=== PATIENT | female | born 1985 | race Caucasian/White ===

== ENCOUNTER 2017-04-23 07:30 | Inpatient (IN) | payer MEDICAID ==
[~2017-04-23] VITALS: Ht 149.9 cm; Wt 88.2 kg
[~2017-04-23 07:30] MED LIST: PREN1TAB49 PO
[2017-04-24] MEDS ORDERED: EPHEDrine SULFATE 50 MG/5 ML SYG ONE (07:00)
[2017-04-24] MEDS ORDERED: MISOPROSTOL 200 MCG TAB PR PRN ×2 (11:00→17:30)
[2017-04-24] MEDS ORDERED: METHYLERGONOVINE 0.2 MG INJ IM PRN ×2 (11:00→17:30)
[2017-04-24] MEDS ORDERED: CEFAZOLIN 2 GM/50 ML (PMX) 50 ML IV SCH (11:00)
[2017-04-24] MEDS ORDERED: CARBOPROST 250 MCG INJ IM PRN ×2 (11:00→17:30)
[2017-04-24] MEDS ORDERED: OXYTOCIN 30 UNITS/LR 500 ML IV PRN ×2 (11:00→17:30)
[2017-04-24 11:10] LABS: ADD SCAN DIFF NO
[2017-04-24 11:18] LABS: BASOPHILS % 0.1 % (0.0-2.0); EOSINOPHILS % 0.5 % (0.0-7.0); HEMATOCRIT 31.5 % (37.0-47.0); HEMOGLOBIN 10.3 g/dl (12.0-16.0); LYMPHOCYTES # 1.6 10^3/ul (0.8-2.9); LYMPHOCYTES % 21.6 % (15.0-51.0); MEAN CORPUSCULAR HEMOGLOBIN 29.4 pg (29.0-33.0); MEAN CORPUSCULAR HGB CONC 32.7 g/dl (32.0-37.0); MEAN PLATELET VOLUME 10.9 fl (7.4-10.4); MONOCYTE # 0.6 10^3/ul (0.3-0.9); MONOCYTES % 8.4 % (0.0-11.0); NEUTROPHIL # 5.1 10^3/ul (1.6-7.5); PLATELET COUNT 171 10^3/UL (140-415); RED CELL DISTRIBUTION WIDTH 17.2 % (11.5-14.5); WHITE BLOOD COUNT 7.4 10^3/ul (4.8-10.8)
[2017-04-24 12:06] LABS: INR 1.03; PROTIME 13.5 Sec (12.2-14.2); PT RATIO 1.1
[2017-04-24 12:11] LABS: PARTIAL THROMBOPLASTIN TIME 30.3 Sec (25.0-35.0)
[2017-04-24] MEDS ORDERED: morphine SULFATE/PF (10 MG/10 ML) INJ ONE (12:39)
[2017-04-24] MEDS ORDERED: FENTAnyl 50 MCG/ML VIAL ONE (12:39)
[2017-04-24] MEDS ORDERED: PHENYLephrine (100 MCG/ML) 5ML SYG ONE (12:46)
[2017-04-24] MEDS ORDERED: ONDANSETRON 4 MG INJ ONE (12:59)
[2017-04-24] MEDS ORDERED: DEXAMETHASONE 4 MG/ML 1 ML INJ ONE (12:59)
[2017-04-24] MEDS ORDERED: OXYTOCIN 30 UNITS/LR 500 ML IV ONE (13:59)
--- NOTE | 2017-04-24 14:29 | HP ---
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 Allergy denies allergy to any known medication Social habit denies a smoking or drinking or using illicit drugs Review of system within normal Physical examination 5 feet 194 pounds temperature 97.9 pulse of 72 respiration 18 pressure 117/75 Head ears nose and throat negative Lungs clear to P&A Heart normal sinus rhythm no murmur Abdomen fundal height 37 cm from symphysis pubic with a score of 2 previous section heart rate category 1 Pelvic examination deferred Extremities no edema no varicosities Impression intrauterine at 39 weeks gestation history of 2 previous section is being prepared to undergo repeat for the third time patient is aware of the complication of the surgery including bowel bladder injury infection hemorrhage and hematoma specifically with a history of 2 previous section on possibility intra-abdominal scar and adhesions and she is willing to go ahead with this procedure Past Family/Social History * Past Medical, Surgical, Family and Obstetric Histories reviewed from chart. OB Admission Exam Physical Exam HEENT: WNL Heart: Rhythm Normal Lungs: Clear, Equal Abdomen: WNL Extremities: Normal Reflexes: Normal Cervical Dilatation: None Effacement: 0% Heart Rate: 130's Accelerations: Accelerations Present Intensity: Mild Last 72 hours Lab Results CBC & BMP 04/24/17 10:45 OB Assessment/Plan Reason for admission: other (Repeat for the third time) DORIE GARG MD Apr 24, 2017 14:28
--- NOTE | 2017-04-24 15:06 | OPR ---
DATE OF OPERATION: 04/24/2017 PREOPERATIVE DIAGNOSES: 1. Intrauterine at 39 weeks and 1 day. 2. History of 2 previous sections. POSTOPERATIVE DIAGNOSES: 1. Intrauterine at 39 weeks and 1 day. 2. History of 2 previous sections. OPERATION PERFORMED: Repeat transverse low cervical section. SURGEON: Dorie Rojas MD TESTING COORDINATOR: Kalina Guajardo MD ANESTHESIA: Spinal. ANESTHESIOLOGIST: Dr. Riley FINDINGS: Live baby girl with the 9 and 9. Baby weighed 3270 grams. DETAILS OF THE PROCEDURE: Under satisfactory spinal anesthesia, the patient was prepped and draped and placed in supine position, tilted to the left. Pfannenstiel incision was made. The skin scar o f 2 previous sections was removed. Incision carried through the subcutaneous tissue. Blee ders brought under control with electrocautery. Fascia incised to the length of the incision. Rect us muscle divided in midline. Peritoneum exposed. Upon entry into the abdomen, it was noted a trem endous amount of adhesions between the anterior uterine wall, round ligament and anterior abdominal wall which had twisted the uterus laterally. After those adhesions were taken down by the sharp and blunt dissection, finally, the lower segment of the uterus was freed from the adhesions. Bladder f lap was developed. Transverse incision was made in the lower segment of the uterus. Amniotic sac r uptured. Clear amniotic fluid noted. Live baby girl was delivered from occiput posterior face up. Nasal oropharyngeal suction was performed. Baby handed to the team for immediate attentio n. Patient received 20 units of Pitocin. Placenta delivered manually intact. Uterine cavity clean ed with wet sponge and drainage established. Uterus closed in 2 layers using Monocryl #1 in continu ous fashion. Peritoneal cavity irrigated with warm saline. Sponge, needle and instrument reported to be correct. Abdominal peritoneum closed with 2-0 chromic catgut continuously. Rectus muscle ramiro roximated with several interrupted 2-0 chromic catgut. Fascia closed with #1 PDS in a continuous fa shion. Subcutaneous tissue approximated with 2-0 chromic catgut. Skin closed with edison. Estima afshin blood loss 600 mL. Urine bag contained 200 mL of clear urine. Patient tolerated procedure well , transferred to recovery room in good condition. Dictated By: DORIE ROJAS MD HF/NTS Conf#: [id number] DID#: [id number] CC: KALINA GUAJARDO MD;*End*
[2017-04-24] MEDS: OXYTOCIN 30 UNITS/LR 500 ML IV SCH ×4 (15:44→22:47)
[2017-04-24 17:00] VITALS: BP 102/56; RESP 18
[2017-04-24] MEDS ORDERED: ACETAMINOPHEN/CODEINE #3 TAB PO PRN ×2 (17:30)
[2017-04-24] MEDS ORDERED: CEFAZOLIN 1 GM/50 ML (PMX) 50 ML IVPB SCH (17:30)
[2017-04-24] MEDS ORDERED: OXYCODONE/ACETAMINOPHEN (5/325) TAB PO PRN ×2 (17:30)
[2017-04-24] MEDS: IBUPROFEN 600 MG TAB PO SCH (18:00)
[2017-04-24] MEDS ORDERED: HYDROmorphONE 1 MG/ML SYG IV PRN ×3 (18:30→19:00)
[2017-04-24] MEDS ORDERED: ONDANSETRON 4 MG INJ IV PRN ×2 (18:30→19:00)
[2017-04-24] MEDS ORDERED: KETOROLAC 30 MG INJ IV PRN ×2 (18:30→19:00)
[2017-04-24] MEDS ORDERED: DIPHENHYDRAMINE 50 MG INJ IV PRN (19:00)
[2017-04-24] MEDS ORDERED: NALOXONE (0.4 MG/ML) INJ IV PRN (19:00)
[2017-04-24] MEDS ORDERED: ZOLPIDEM 5 MG TAB PO PRN (19:00)
[2017-04-24 20:00] VITALS: BP 109/66; RESP 18
[2017-04-24] MEDS: SENNA/DOCUSATE NA (8.6MG/50MG) TAB PO SCH (21:00)
[2017-04-25] VITALS: BP 95/50; RESP 18
[2017-04-25] MEDS: OXYTOCIN 30 UNITS/LR 500 ML IV SCH ×4 (01:14→13:14)
[2017-04-25 04:00] VITALS: BP 98/54; RESP 18
[2017-04-25] MEDS: IBUPROFEN 600 MG TAB PO SCH ×4 (06:00→18:07)
[2017-04-25 08:00] VITALS: BP 100/64; PULSE 62; RESP 18
[2017-04-25 08:13] LABS: ADD SCAN DIFF NO
[2017-04-25 08:17] LABS: BASOPHILS % 0.1 % (0.0-2.0); EOSINOPHILS % 0.1 % (0.0-7.0); HEMATOCRIT 29.4 % (37.0-47.0); HEMOGLOBIN 9.6 g/dl (12.0-16.0); LYMPHOCYTES # 1.7 10^3/ul (0.8-2.9); LYMPHOCYTES % 14.8 % (15.0-51.0); MEAN CORPUSCULAR HEMOGLOBIN 29.9 pg (29.0-33.0); MEAN CORPUSCULAR HGB CONC 32.7 g/dl (32.0-37.0); MEAN CORPUSCULAR VOLUME 91.6 fl (82.0-101.0); MEAN PLATELET VOLUME 11.1 fl (7.4-10.4); MONOCYTE # 1.2 10^3/ul (0.3-0.9); NEUTROPHIL # 8.7 10^3/ul (1.6-7.5); NEUTROPHILS % 74.6 % (39.0-77.0); PLATELET COUNT 174 10^3/UL (140-415); RED BLOOD COUNT 3.21 10^6/ul (4.20-5.40); WHITE BLOOD COUNT 11.7 10^3/ul (4.8-10.8)
[2017-04-25] MEDS: SENNA/DOCUSATE NA (8.6MG/50MG) TAB PO SCH ×2 (12:50→20:57)
[2017-04-25] MEDS: LANOLIN 7 GM TUBE TOP PRN (12:50)
--- NOTE | 2017-04-25 15:48 | PN ---
Date/Time of Note Date/Time of Note DATE: 04/25/17 TIME: 15:45 OB Subjective Subjective Subjective Postop day #1 status post repeat OB Objective Objective Objective Patient has no complaints No flatus, no BM HEENT: WNL Heart: Rhythm Normal Lungs: Clear, Equal Abdomen: WNL Extremities: Normal Reflexes: Normal OB Assessment/Plan Other Assessment: Postop day #1 status post repeat Patient stable and afebrile Other plan: Advance diet as tolerated DC Garcia Remove dressing Encouraged to ambulate Continue with pain meds as needed CBC in PUJA Francis MD Apr 25, 2017 15:48
[2017-04-25 15:53] VITALS: BP 105/68; PULSE 72; RESP 18
[2017-04-25 20:00] VITALS: BP 100/55; PULSE 65; RESP 18
[2017-04-26] MEDS: IBUPROFEN 600 MG TAB PO SCH ×4 (00:27→17:41)
[2017-04-26 04:00] VITALS: BP 107/55; PULSE 65; RESP 17
[2017-04-26 07:13] LABS: ADD SCAN DIFF NO
[2017-04-26 07:14] LABS: BASOPHILS % 0.1 % (0.0-2.0); EOSINOPHILS # 0.1 10^3/ul (0.0-0.5); EOSINOPHILS % 0.7 % (0.0-7.0); HEMATOCRIT 29.7 % (37.0-47.0); HEMOGLOBIN 9.4 g/dl (12.0-16.0); LYMPHOCYTES % 23.8 % (15.0-51.0); MEAN CORPUSCULAR HEMOGLOBIN 28.9 pg (29.0-33.0); MEAN CORPUSCULAR HGB CONC 31.6 g/dl (32.0-37.0); MEAN CORPUSCULAR VOLUME 91.4 fl (82.0-101.0); MONOCYTE # 0.7 10^3/ul (0.3-0.9); NEUTROPHIL # 5.4 10^3/ul (1.6-7.5); NEUTROPHILS % 65.9 % (39.0-77.0); PLATELET COUNT 165 10^3/UL (140-415); RED BLOOD COUNT 3.25 10^6/ul (4.20-5.40); RED CELL DISTRIBUTION WIDTH 17.8 % (11.5-14.5); WHITE BLOOD COUNT 8.2 10^3/ul (4.8-10.8)
[2017-04-26 08:50] VITALS: BP 102/59; PULSE 63; RESP 18
[2017-04-26] MEDS: SENNA/DOCUSATE NA (8.6MG/50MG) TAB PO SCH ×2 (09:58→21:09)
--- NOTE | 2017-04-26 12:31 | QN ---
Documentation Comment pod2 pt doing well vss exam wnl CDI a.p pod 2 continue care FELICE ROMERO MD Apr 26, 2017 12:31
[2017-04-26 16:00] VITALS: BP 107/63; PULSE 68; RESP 18
[2017-04-26 19:55] VITALS: BP 114/67; PULSE 62; RESP 18
[2017-04-27] MEDS: IBUPROFEN 600 MG TAB PO SCH ×3 (00:12→12:23)
[2017-04-27] MEDS: LANOLIN 7 GM TUBE TOP PRN (02:47)
[2017-04-27 04:35] VITALS: BP 112/61; PULSE 60; RESP 18
[2017-04-27 07:40] VITALS: BP 109/58; PULSE 62; RESP 18
[2017-04-27] MEDS ORDERED: DIPHTH/TET/ACEL PERTUSS (ADULT) 0.5 ML VIAL IM* ONE (09:00)
[2017-04-27] MEDS: SENNA/DOCUSATE NA (8.6MG/50MG) TAB PO SCH (09:33)
--- NOTE | 2017-04-27 09:42 | DS ---
Date/Time of Note Date/Time of Note DATE: 04/27/17 TIME: 09:39 Discharge Summary Admission/Discharge Info Admit Date/Time Apr 24, 2017 at 09:57 Discharge Date/Time April 27 at 0 935 Final Diagnosis Post repeat Patient Condition: Good Procedures Repeat for the third time Hx of Present Illness Term history of 2 previous Hospital Course Uneventful satisfactory Home Meds Reported Medications Vits W-Ca,Fe,Fa(<1MG) () 1 Tab Tablet, 1 TAB PO DAILY 11/02/12 Follow-up Plan Appointment clinic in 4 days to discontinue edison Primary Care Provider Care Physician No Primary Time spent on discharge: < 30 minutes DORIE GARG MD Apr 27, 2017 09:42
--- NOTE | 2017-04-27 09:44 | PD.PPDC ---
[employer] DEPARTMENT Discharge Instruction Condition Patient Condition: Good Diet Diet: Resume Regular Diet Wound/Drain Care Instructions Wound/Drain Care Instructions: Remove Steri Strips in 1 week Follow-up Follow-up with Physician: 4, Day/Days Provider Information: Appointment clinic in 4 days to discontinue edison Return to clinic for [employer]ET [employer] F[employer]RICATOR Instructions: Fever greater than 101 Chills Worsening abdominal pain Excessive Vaginal Bleeding More than 2 pads per hour Unable to tolerate diet OB Instructions: Breast Tenderness Depression Blurried Vision Headache Surgical Instructions: Incisional Drainage Incisional Redness DORIE GARG MD Apr 27, 2017 09:44
== END 2017-04-27 14:53 | disposition home or self-care (01) | DRG 766 ==
LOC: L-D 04-24 09:57 → PP1 04-24 16:50
PROVIDERS: ADMIT Obstetrics & Gynecology; ATTEND Obstetrics & Gynecology
PROC: 10D00Z1 Extraction of Products of Conception, Low, Open Approach (ICD-10-PCS; principal; 2017-04-27)
DX: O80 Encounter for full-term uncomplicated delivery (principal); O34.211 Maternal care for low transverse scar from previous cesarean delivery; Z37.0 Single live birth; Z3A.39 39 weeks gestation of pregnancy
CPT/HCPCS: 85025; 85610; 85730; 86592; 86850; 86900; 86901; 90715; 94760; 99464; J0690; J1100; J2274; J2370; J2405; J2590; J3010

== ENCOUNTER 2018-03-05 11:45 | Emergency (ER) | END 2018-03-05 12:04 | disposition home or self-care (01) ==